=== PATIENT | male | born 1995 | race Caucasian/White ===

== ENCOUNTER 2017-05-10 02:18 | Emergency (ER) | payer OTHER ==
[~2017-05-10] VITALS: Ht 170.2 cm; Wt 70.3 kg
[2017-05-10] MEDS ORDERED: NALOXONE HCL 0.4 MG/ML AMPUL ONE (02:39)
[2017-05-10 02:43] LABS: BASOPHILS % (AUTO) 0.7 % (0.0-2.0); EOSINOPHILS # (AUTO) 0.2 K/uL (0.0-0.7); EOSINOPHILS % (AUTO) 2.6 % (0.0-7.0); HEMATOCRIT 42.3 % (36.7-47.1); HEMOGLOBIN 14.8 g/dL (12.5-16.3); LYMPHOCYTES # (AUTO) 2.7 K/uL (20.0-40.0); LYMPHOCYTES % (AUTO) 39.4 % (20.5-74.5); MEAN CORPUSCULAR HEMOGLOBIN 29.4 uug (23.8-33.4); MEAN CORPUSCULAR HGB CONC 35 g/dL (32.5-36.3); MEAN CORPUSCULAR VOLUME 84.2 fL (73.0-96.2); MONOCYTES # (AUTO) 0.7 K/uL (2.0-10.0); MONOCYTES % (AUTO) 10.2 % (0-11); NEUTROPHILS # (AUTO) 3.2 K/uL (1.8-8.9); NEUTROPHILS % (AUTO) 47.1 % (31.5-64.5); PLATELET COUNT (AUTO) 266 K/uL (152-348); RED BLOOD CELL COUNT(AUTO) 5.03 MIL/uL (4.06-5.63); WHITE BLOOD COUNT (AUTO) 6.8 K/uL (3.6-10.2)
[2017-05-10 02:56] LABS: ETHANOL < 3 MG/DL (0-0)
[2017-05-10 02:58] LABS: ALANINE AMINOTRANSFERASE 37 U/L (16-63); ALKALINE PHOSPHATASE 64 U/L (50-136); ASPARTATE AMINOTRANSFERASE 14 U/L (15-37); BILIRUBIN,DIRECT 0.1 mg/dL (0.0-0.2); BILIRUBIN,TOTAL 0.5 mg/dL (0.2-1.0); CARBON DIOXIDE 27 mmol/L (21-32); CHLORIDE 99 mmol/L (98-107); CREATININE 0.9 mg/dL (0.6-1.3); GLUCOSE 120 mg/dL (74-106); POTASSIUM 3.2 mmol/L (3.5-5.1); TOTAL PROTEIN, SERUM 7.6 g/dL (6.4-8.2); UREA NITROGEN, BLOOD 13 mg/dL (7-18)
--- NOTE | 2017-05-10 03:03 | NUR ---
Pt BIB staff from [facility] in , reports pt was attempting to check-in but than passed out, previously stated his drug of choice was heroin. Pt not responsive to pain. Pt placed on monitor, IV 18g left wrist was started, Blood drawn and given to clinical lab scientist. Pt SPO2 97-100% on RA. No distress noted.
[2017-05-10 03:49] LABS: ACETAMINOPHEN < 2.0 ug/mL (10-30)
[2017-05-10 03:51] LABS: THYROID STIMULATING HORMONE 6.475 mIU/mL (0.358-3.740)
--- NOTE | 2017-05-10 05:04 | NUR ---
Pt arose to speech briefly, did not answer questions.
--- NOTE | 2017-05-10 07:37 | NUR ---
0706- Patient ambulated to room 1A from bathroom with steady gait, NAD, respiration :easy, pending results and disposition.
--- NOTE | 2017-05-10 08:41 | NUR ---
IV removed. Catheter intact and site benign. Pressure and 4x4 gauze applied to site. No bleeding noted. Dr Patel paged for Dr Sexton regarding patient's TSH level today.
[2017-05-10] MEDS ORDERED: POTASSIUM CHLORIDE 20 MEQ TAB.PRT.SR PO ONE (08:46)
[2017-05-10 09:05] LABS: *AMPHETAMINE, URINE POSITIVE (NEGATIVE); *BARBITURATE, URINE NEGATIVE (NEGATIVE); *CANNABINOID, URINE NEGATIVE (NEGATIVE); *COCCAINE, URINE NEGATIVE (NEGATIVE); *OPIATE, URINE POSITIVE (NEGATIVE); *PHENCYCLIDINE SCREEN,URINE NEGATIVE (NEGATIVE)
[2017-05-10] MEDS ORDERED: POTASSIUM CHLORIDE 20 MEQ TAB.PRT.SR ONE (09:10)
--- NOTE | 2017-05-10 09:16 | NUR ---
Patient discharged to [facility] (with staff from [facility] at bedside) in stable conditon. Written and verbal after care instructions given to patient. Patient verbalizes understanding of instructions. Patient left ER with steady gait.
== END 2017-05-10 09:24 | disposition home or self-care (01) ==
LOC: ER 02:19
DX: R94.6 Abnormal results of thyroid function studies (principal); F11.10 Opioid abuse, uncomplicated; F13.10 Sedative, hypnotic or anxiolytic abuse, uncomplicated
CPT/HCPCS: 36415; 71010; 80048; 80076; 80307; 82962; 84443; 85025; 99285; A4663; G0480 ×2; G0481; J2310

== ENCOUNTER 2017-05-10 09:16 | Inpatient (IN) | payer OTHER ==
[~2017-05-10] VITALS: Ht 172.7 cm; Wt 62.6 kg
--- NOTE | 2017-05-10 09:40 | NUR ---
Pre-Admission Pre-admission assessment performed in the intake department of [facility]. Pt is A&O and ambulatory with a steady gait. He appears mildly intoxicated and answers questions appropriately. Pt arrived to [facility] intake from the emergency department where he was monitored over night for intoxication. He states "I'm tired and hungry". Vital signs are B/P 129/70, HR 75, RR 16, O2 sat 100%, T 98.0, pain 0/10. Pt reports that he is here to be treated for BZD and Heroin use. Pt is stable and [facility]
[2017-05-10 09:45] VITALS: BP 129/70
[2017-05-10] MEDS ORDERED: BUPRENORPHINE HCL 2 MG TAB.SUBL SL PRN (10:15)
[2017-05-10] MEDS ORDERED: LOPERAMIDE HCL 2 MG CAPSULE PO PRN ×2 (10:15)
[2017-05-10] MEDS ORDERED: METHOCARBAMOL 750 MG TABLET PO PRN (10:15)
[2017-05-10] MEDS ORDERED: MIRALAX 17 GM POWD.PACK PO PRN (10:15)
[2017-05-10] MEDS ORDERED: ONDANSETRON 4 MG/2 ML VIAL IM PRN (10:15)
[2017-05-10] MEDS ORDERED: CLONIDINE HCL 0.1 MG TABLET PO PRN (10:15)
[2017-05-10] MEDS ORDERED: DICYCLOMINE HCL 20 MG TABLET PO PRN (10:15)
[2017-05-10] MEDS ORDERED: ONDANSETRON ODT 4 MG TAB.RAPDIS SL PRN (10:15)
[2017-05-10] MEDS ORDERED: MAGNESIUM HYDROXIDE 30 ML LIQUID UDC PO PRN (10:15)
[2017-05-10] MEDS ORDERED: IBUPROFEN 600 MG TABLET PO PRN (10:15)
[2017-05-10] MEDS ORDERED: MAG HYDROX/AL HYDROX/SIMETH 30 ML LIQUID UDC PO PRN (10:15)
[2017-05-10] MEDS ORDERED: ACETAMINOPHEN 325 MG TABLET PO PRN (10:15)
[2017-05-10] MEDS ORDERED: diphenhydrAMINE 50 MG CAPSULE PO PRN (10:15)
[2017-05-10] MEDS ORDERED: HYDROXYZINE PAMOATE 25 MG CAPSULE PO PRN (10:15)
--- NOTE | 2017-05-10 11:00 | NUR ---
ADMISSION Pt is a 23 yo male who arrived on the [facility] at 1005 on 05/10/17 for medically supervised detox. He is A&O and ambulatory. He appears mildly intoxicated and answers questions appropriately. Body check performed by the DIAMOND POWDER MIXER and skin check performed by the nurse. Pt was oriented to the unit and shown to his room. Prior to being admitted to [facility] patient was monitored in the ED for acute intoxication. He reports NKA, wishes to be full code status, and is on a regular diet. Admitting vitals are: B/P 129/70, HR 75, RR 16, O2 sat 100%, T 98.0, pain 0/10. He is 5'8" and weighs 138lb. He denies any past medical or psychological history and has no seizure history. Lung sounds clear, PERRLA, brisk capillary refill, abdomen soft and non-distended, bowel sounds present, ac/dc rewinder strengths equal, skin is intact. Last BM was yesterday. History of Use 1. BZD/Xanax PO 4-6mg per day for the past 2 months. Last used 4mg 05/10/17 at 0130. Pt has used BZD's for the past 6 years. He intermittently uses Valium or Klonopin if he is unable to obtain Xanax. 2. Opiate/Heroin IV 1 gram per day for the past 2 months. Last used 0.5 grams 05/10/17 at 0130. He has used heroin for 5 years. 3. Methamphetamine IV 0.5 grams per day for the past 2 months. Last used 0.5 grams on 05/10/17 at 0130. He has used Meth for 1 year. Treatment History [facility] 05/02/17 for 6 months. Pt smokes 15 cigarettes per day. His longest period of sobriety was 2 months beginning 04/2016. He currently lives in an apartment with two roommates. He decided to come to treatment today because "It was too much". UDS provided on the [facility]. Minimal s/s of withdrawal on admission as pt last used early today. Pt has not slept much in the past 4 days r/t substance use. COWS 1 and CIWA 1 on admission. Pt does not have a primary care physician. Dr. Lara aware of pt's admission. Pt educated regarding unit rules and use of the call light. All questions answered. Bed is down with call light in reach. Addendum: 05/10/17 at 1829 by NEETA ALEXANDER RN Pt reports occasionally drinking ETOH, using cocaine, GHB, GBL, and BDO.
[2017-05-10] MEDS ORDERED: LORAZEPAM 2 MG/1 ML VIAL IM PRN (12:15)
[2017-05-10] MEDS ORDERED: LORAZEPAM 1 MG TABLET PO PRN ×2 (12:15)
[2017-05-10 12:30] VITALS: BP 120/71
[2017-05-10 13:05] LABS: *AMPHETAMINE, URINE POSITIVE (NEGATIVE); *BARBITURATE, URINE NEGATIVE (NEGATIVE); *CANNABINOID, URINE NEGATIVE (NEGATIVE); *COCCAINE, URINE NEGATIVE (NEGATIVE); *OPIATE, URINE POSITIVE (NEGATIVE); *PHENCYCLIDINE SCREEN,URINE NEGATIVE (NEGATIVE)
[2017-05-10 16:00] VITALS: BP 122/69
[2017-05-10 17:23] LABS: BASOPHILS % (AUTO) 0.7 % (0.0-2.0); EOSINOPHILS # (AUTO) 0.1 K/uL (0.0-0.7); EOSINOPHILS % (AUTO) 2.7 % (0.0-7.0); HEMATOCRIT 47.6 % (36.7-47.1); HEMOGLOBIN 16.1 g/dL (12.5-16.3); LYMPHOCYTES # (AUTO) 1.6 K/uL (20.0-40.0); MEAN CORPUSCULAR HEMOGLOBIN 28.8 uug (23.8-33.4); MEAN CORPUSCULAR HGB CONC 34 g/dL (32.5-36.3); MEAN CORPUSCULAR VOLUME 84.8 fL (73.0-96.2); MONOCYTES # (AUTO) 0.5 K/uL (2.0-10.0); MONOCYTES % (AUTO) 10.4 % (0-11); NEUTROPHILS # (AUTO) 2.4 K/uL (1.8-8.9); NEUTROPHILS % (AUTO) 51.2 % (31.5-64.5); PLATELET COUNT (AUTO) 276 K/uL (152-348); RED BLOOD CELL COUNT(AUTO) 5.61 MIL/uL (4.06-5.63); WHITE BLOOD COUNT (AUTO) 4.7 K/uL (3.6-10.2)
[2017-05-10 17:40] LABS: ETHANOL < 3 MG/DL (0-0)
[2017-05-10 17:41] LABS: ALANINE AMINOTRANSFERASE 36 U/L (16-63); ALKALINE PHOSPHATASE 65 U/L (50-136); ASPARTATE AMINOTRANSFERASE 16 U/L (15-37); BILIRUBIN,TOTAL 0.8 mg/dL (0.2-1.0); CARBON DIOXIDE 29 mmol/L (21-32); CHLORIDE 103 mmol/L (98-107); CREATININE 0.9 mg/dL (0.6-1.3); GLUCOSE 88 mg/dL (74-106); MAGNESIUM 2.1 mg/dL (1.8-2.4); POTASSIUM 4.4 mmol/L (3.5-5.1); TOTAL PROTEIN, SERUM 7.9 g/dL (6.4-8.2); UREA NITROGEN, BLOOD 10 mg/dL (7-18)
[2017-05-10 17:50] LABS: THYROID STIMULATING HORMONE 0.718 mIU/mL (0.358-3.740)
--- NOTE | 2017-05-10 19:15 | NUR ---
END OF SHIFT Report provided to warehouse worker 2nd shift nurse. Pt is lying in bed watching TV. He is a 21 yo male admitted to [facility] today for BZD and opiate dependence. He is A&O and ambulatory. NKA, full code status, and on a regular diet. Minimal s/s of withdrawal. Pt last used today at 0130. PRN's available for the management of withdrawal symptoms. No medications administered Ativan dose ordered for tonight. He slept throughout the day as he had not slept much in the days prior admission. Last COWS 2 and CIWA 2. He drank 1000mL. Fall and seizure precautions in place. Bed is down with call light in reach.
--- NOTE | 2017-05-10 19:25 | NUR ---
START OF SHIFT Patient is a 21-year-old patient admitted on 05/10/17 for Xanax, Heroin, and methamphetamine dependence. Patient has a past medical history of anxiety. Patient is FULL code, NKA to food or drugs, on a regular diet. Patient is scheduled to start a 5-day Ativan and 5-day Subutex taper tomorrow. Upon assessment, patient is awake, alert and oriented x4, complaining of mild chills and dizziness. SN instructed patient to rise from bed slowly and change positions slowly to minimize dizziness/lightheadedness. Patient verbalized understanding to instruction. Patient is on fall and seizure precautions with no history of seizure. Safety measures in place, bed locked in low position, side rails up x2, call light within reach. Will continue to monitor.
[2017-05-10 20:00] VITALS: BP 126/63
[2017-05-10] MEDS: GABAPENTIN 300 MG CAPSULE PO SCH (20:51)
--- NOTE | 2017-05-10 20:59 | NUR ---
PRN MOTRIN Patient complains of headache 5/10. PRN Motrin 600mg given PO. Safety measures in place, call light within reach. Will reassess in one hour.
[2017-05-10] MEDS ORDERED: LORAZEPAM 1 MG TABLET PO SCH (21:00)
--- NOTE | 2017-05-10 21:59 | NUR ---
PRN MOTRIN REASSESSMENT Patient reports headache pain 2/10 at this time. PRN Motrin effective. Patient's respirations are even and unlabored. Safety measures in place, bed locked in low position, side rails up x2, call light within reach. Will continue to monitor.
[2017-05-11] VITALS: BP 103/46
--- NOTE | 2017-05-11 | NUR ---
MIDNIGHT COWS & CIWA DEFERRED Midnight COWS & CIWA deferred due to patient asleep; to be assessed and scored while patient is awake, per protocol. Patient's respirations are even and unlabored, 14/min. Safety measures in place, bed locked in low position, side rails up x2, call light within reach. Will continue to monitor.
[2017-05-11 04:00] VITALS: BP 110/61
--- NOTE | 2017-05-11 04:00 | NUR ---
4AM COWS & CIWA DEFERRED 4AM COWS & CIWA deferred due to patient asleep; to be assessed and scored while patient is awake, per protocol. Patient's respirations are even and unlabored, 16/min. Safety measures in place, bed locked in low position, side rails up x2, call light within reach. Will continue to monitor.
--- NOTE | 2017-05-11 07:07 | NUR ---
END OF SHIFT Patient is a 21-year-old patient admitted on 05/10/17 for Xanax, Heroin, and methamphetamine dependence. Patient has a past medical history of anxiety. Patient is FULL code, NKA to food or drugs, on a regular diet. Patient is scheduled to start a 5-day Ativan and 5-day Subutex taper today. Patient slept for 7 hours, total intake of 796 mL, void x1, stool x0. PRN Motrin was given at 205 for headache of 5/10. PRN Motrin was effective in bringing down pain to 2/10 at time of reassessment. Last COWS was 6, last CIWA 8. Patient is on fall and seizure precautions with no history of seizure. Safety measures in place, bed locked in low position, side rails up x2, call light within reach. Will endorse to day shift.
--- NOTE | 2017-05-11 07:45 | NUR ---
START OF SHIFT RECEIVED PT RESTING IN BED A/O X4. RESPIRATIONS EVEN AND UNLABORED. PT REPORTS HAVING BODY ACHES, CHILLS, SWEATING, ANXIETY, STOMACH CRAMPING, NUMBNESS IN LEGS, DIZZINESS, AND CONGESTION. PUPILS ARE LARGER THAN NORMAL SIZE. PILOERECTION OF THE PT SKIN SEEN AND MILD TREMORS FELT AND SEEN. NO SOB OR NAUSEA NOTED. ENCOURAGED PT TO CONSUME MORE FLUIDS TO FACILITATE IN DETOX PROCESS. BED IN LOWEST POSITION. CALL LIGHT WITHIN REACH. SZ AND FALL PRECAUTIONS TAKEN. WILL CONTINUE TO MONITOR AND PROVIDE SUPPORT.
[2017-05-11 08:00] VITALS: BP 107/68
[2017-05-11] MEDS: BUPRENORPHINE HCL 2 MG TAB.SUBL SL SCH ×3 (08:42→20:23)
[2017-05-11] MEDS: GABAPENTIN 300 MG CAPSULE PO SCH ×2 (08:42→20:21)
[2017-05-11] MEDS: LORAZEPAM 1 MG TABLET PO SCH ×3 (08:42→20:23)
[2017-05-11] MEDS ORDERED: TUBERCULIN,PURIF.PROT.DERIV. 5 TU/0.1 ML TEST ID ONE (09:00)
[2017-05-11 12:00] VITALS: BP 114/60
[2017-05-11] MEDS: OSELTAMIVIR PHOSPHATE 75 MG CAPSULE PO SCH (14:03)
[2017-05-11 16:00] VITALS: BP 120/52
--- NOTE | 2017-05-11 19:30 | NUR ---
END OF SHIFT PT RESTING IS A/O X4. RESPIRATIONS EVEN AND UNLABORED. PT REPORTS HAVING BODY ACHES, CHILLS, SWEATING, ANXIETY, STOMACH CRAMPING, NUMBNESS IN LEGS, DIZZINESS, AND CONGESTION. PUPILS ARE LARGER THAN NORMAL SIZE. PILOERECTION OF THE PT SKIN SEEN AND MILD TREMORS FELT AND SEEN. NO SOB OR NAUSEA NOTED. LAST COWS 6 CIWA 5. DIET HAS BEEN CHANGED TO LACTOSE-FREE DIET. ENCOURAGED PT TO CONSUME MORE FLUIDS TO FACILITATE IN DETOX PROCESS. BED IN LOWEST POSITION. CALL LIGHT WITHIN REACH. SZ AND FALL PRECAUTIONS TAKEN. WILL GIVE ALL ENDORSEMENT AND PERTINENT DATA TO PATHOLOGY SUPERVISOR NURSE.
--- NOTE | 2017-05-11 19:40 | NUR ---
START OF SHIFT Patient is a 21-year-old patient admitted on 05/10/17 for Xanax, Heroin, and methamphetamine dependence. Patient has a past medical history of anxiety. Patient is FULL code, NKA to food or drugs, on a regular diet. Patient is currently on a 5-day Ativan and 5-day Subutex taper, tolerating well. Upon assessment, patient is awake, alert and oriented x4, skin intact. Patient reports he has been sleeping on and off during the day and has been eating his meals. Patient is on fall and seizure precautions with no history of seizure. Safety measures in place, bed locked in low position, side rails up x2, call light within reach. Will continue to monitor.
[2017-05-11 20:00] VITALS: BP_SYST 113; BP_SYST 97; BP_DIAS 54; BP_DIAS 65
--- NOTE | 2017-05-12 | NUR ---
MIDNIGHT VITALS REFUSED, COWS AND CIWA DEFERRED Patient refused midnight vital signs, COWS and CIWA deferred due to patient asleep; to be assessed and scored while patient is awake per protocol. Respirations 14/min, even and unlabored. Safety measures in place, call light within reach. Will continue to monitor.
[2017-05-12 04:00] VITALS: BP 114/54
--- NOTE | 2017-05-12 04:00 | NUR ---
4AM COWS AND CIWA DEFERRED COWS and CIWA deferred due to patient asleep; to be assessed and scored while patient is awake per protocol. Respirations 16/min, even and unlabored. Safety measures in place, call light within reach. Will continue to monitor.
--- NOTE | 2017-05-12 07:19 | NUR ---
END OF SHIFT Patient is a 21-year-old patient admitted on 05/10/17 for Xanax, Heroin, and methamphetamine dependence. Patient has a past medical history of anxiety. Patient is FULL code, NKA to food or drugs, on a regular diet. Patient is currently on a 5-day Ativan and 5-day Subutex taper, tolerating well. Patient slept for 10 hours, total intake of 547 mL, void x1, stool x0. Patient did not receive any PRN medications. Patients last COWS score was 5, last CIWA score was 5. Patient is on fall and seizure precautions with no history of seizure. Safety measures in place, bed locked in low position, side rails up x2, call light within reach. Will endorse to day shift.
[2017-05-12 08:00] VITALS: BP 114/60
--- NOTE | 2017-05-12 08:05 | NUR ---
START OF SHIFT: RECEIVED PT A/O X 4.HE PRESENTS WITH BLUNTED AFFECT AND DEPRESSED MOOD. HE DENIES S/I AND H/I. COWS 9 CIWA 5. HE CONTINUES ON ATIVAN/SUBUTEX TAPER TO MANAGE S/S OF W/D. HE REPORTS BODY ACHES,SWEATS,CHILLS,RESTLESSNESS AND IRRITABILITY. ENCOURAGED INCREASED FLUIDS TO ASSIST IN FACILITATING DETOX PROCESS. WILL CONTINUE TO MONITOR AND MANAGE S/S OF W/D.
[2017-05-12] MEDS: GABAPENTIN 300 MG CAPSULE PO SCH ×2 (08:28→20:34)
[2017-05-12] MEDS: LORAZEPAM 1 MG TABLET PO SCH ×4 (08:28→20:34)
[2017-05-12] MEDS: OSELTAMIVIR PHOSPHATE 75 MG CAPSULE PO SCH (09:00)
[2017-05-12] MEDS ORDERED: BUPRENORPHINE HCL 2 MG TAB.SUBL SL SCH (09:00)
[2017-05-12 12:00] VITALS: BP 129/60
[2017-05-12] MEDS ORDERED: OSELTAMIVIR PHOSPHATE 75 MG CAPSULE PO ONE (12:00)
[2017-05-12] MEDS: BUPRENORPHINE HCL 2 MG TAB.SUBL SL SCH ×2 (14:57→20:34)
[2017-05-12 16:00] VITALS: BP 112/67
--- NOTE | 2017-05-12 18:29 | NUR ---
END OF SHIFT: PT CONTINUES ON SUBUTEX/ATIVAN TAPER. LAST COWS 4 CIWA 4. HE HAS BEEN IN BED SLEEPING ON AND OFF ALL OF SHIFT. HE STATES HE WAS AWAKE FOR MANY DAYS IN A ROW BEFORE COMING INTO DETOX AND NEEDS REST. HE WAS COMPLIANT WITH INCREASED FLUIDS. HELD 1300 DOSE ATIVAN PT WAS SLEEPING. WILL PASS SHIFT REPORT TO ONCOMING NIGHT NURSE.
--- NOTE | 2017-05-12 19:15 | NUR ---
Start of Shift Note: Patient is a 21 y.o male admitted on 05/10/17 for Opiate and Benzo dependence. Patient denies any past medical history. No seizure history noted. Patient is on a regular diet with no known food and drug allergies. Full Code status. Patient is on a 5-day Subutex and 5-day Ativan taper and tolerating well. Last COWS 4 CIWA 4. No PRn medications given during day shift. Patient is alert & oriented x4. No shortness of breath noted. Respiration even & unlabored. Abdomen soft & non-distended. No nausea/vomiting noted. Patient presented with complains of stomach cramps, stuffy nose, mild headache and anxiety. Hand tremors felt but not seen. Patient denies hallucinations at this time. Safety precautions in place. Bed locked in lowest position. Both side rails up. Call light within pts reach. Will continue to monitor patient.
[2017-05-12 20:00] VITALS: BP 124/82
--- NOTE | 2017-05-12 20:34 | NUR ---
PRN Bentyl Patient complained of stomach cramping. PRN Bentyl administered as ordered. WIll continue to monitor patient.
--- NOTE | 2017-05-12 21:34 | NUR ---
PRN Reassessment PRN medication effective. Patient verbalized relief in stomach cramps after medication administration. Will continue to monitor patient.
[2017-05-13] VITALS: BP 119/58
--- NOTE | 2017-05-13 07:07 | NUR ---
End of Shift Note: Patient had an uneventful night. Patient is a 21 y.o male admitted for Opiate and Benzo dependence. Patient is on a 5-day Subutex and 5-day Ativan taper and tolerating well. Last COWS 5 CIWA 5 noted. Patient received PRN Bentyl during my shift and was effective. Closely monitor symptoms of withdrawal. Vitals monitored closely and noted within normal limits. Patient is compliant with medications and treatment plan. Patient remained stable throughout my shift. Patient shows no s/s of distress. Patient still asleep in bed. Patient slept for a total of 6 hour. Fluid intake 1553ml. Voided 1x with 1x bowel movement. All needs attended & met. Safety measures in place. Will continue to monitor patient.
--- NOTE | 2017-05-13 07:50 | NUR ---
START OF SHIFT NOTE Received report from night nurse, 21 year old male admitted for Opiate/Benzo dependence. Patient denies any PMH. Patient cont with 5 days Ativan/Subutex taper tolerating well. Per endorsement pt received PRN Bentyl effective per night nurse, last CIWA-5, COWS-5, slept for 6 hours. Patient received awake, alert and oriented x4. Patient was educated regarding plan of care for the day and medication regimen. Safety measures in place. Call light with in reach. Will continue to monitor.
[2017-05-13 08:00] VITALS: BP 124/66
[2017-05-13] MEDS: LORAZEPAM 1 MG TABLET PO SCH ×3 (08:25→20:32)
[2017-05-13] MEDS: GABAPENTIN 300 MG CAPSULE PO SCH ×3 (08:25→20:33)
[2017-05-13] MEDS: OSELTAMIVIR PHOSPHATE 75 MG CAPSULE PO SCH (08:25)
[2017-05-13] MEDS: BUPRENORPHINE HCL 2 MG TAB.SUBL SL SCH ×3 (08:26→20:33)
--- NOTE | 2017-05-13 10:01 | NUR ---
PRN ZOFRAN Patient reported nauseated and x1 emesis. PRN Zofran 4mg SL given as ordered. Will cont to monitor and reassess.
--- NOTE | 2017-05-13 10:10 | NUR ---
THerapist prompted client to come into group today and participate in his recovery.
--- NOTE | 2017-05-13 10:31 | NUR ---
ZOFRAN REASSESSMENT Per pt Zofran was effective nausea improved no emesis at this time.
[2017-05-13 12:00] VITALS: BP 114/62
[2017-05-13] MEDS ORDERED: BISACODYL 5 MG TABLET.DR PO PRN (12:30)
[2017-05-13] MEDS ORDERED: FLEET ENEMA 133 ML BOTTLE RC PRN (12:30)
[2017-05-13] MEDS ORDERED: BISACODYL 10 MG SUPP.RECT RC PRN (12:30)
[2017-05-13] MEDS: DICYCLOMINE HCL 20 MG TABLET PO SCH ×2 (14:12→20:32)
[2017-05-13] MEDS: DOCUSATE SODIUM 250 MG CAPSULE PO SCH (14:17)
--- NOTE | 2017-05-13 14:26 | NUR ---
Therapist prompted client about group times. Client stated he will attend group this afternoon.
[2017-05-13 16:00] VITALS: BP 139/68
--- NOTE | 2017-05-13 19:10 | NUR ---
END OF SHIFT NOTE Gave report to night nurse, 21 year old male who continues on taper medications. Pt tolerates ordered Meds well. Pt has one episode of emesis while on the patio, PRN Zofran 4mg SL administered and effective. Pt reports constipation and says nausea was related to that. New order for scheduled Colace 250mg started by Dr. Lara. Pt encouraged to attend groups and activities. All needs met, pt remains compliant with treatment plan. Most recent COWS 4 and CIWA 3. All needs are attended. Pt endorsed to night nurse in stable condition.
--- NOTE | 2017-05-13 19:55 | NUR ---
START OF SHIFT Received report from day shift nurse. Pt attended a group meeting and returned to his room after. He is a 21 yo male admitted to [facility] on 05/10 for BZD and Opiate dependence. He is A&O and ambulatory. NKA, full code status, and on a regular diet. He denies any PMH. On admission he reported using Xanax 4-6mg per day, heroin 1 gram per day, and methamphetamine 0.5 grams per day. 5 day Ativan and 5 day Subutex tapers started 05/11. He reports chills, restlessness, stomach cramps, and nasal stuffiness. Tapers due tonight. Fall and seizure precautions in place. Bed is down with call light in reach.
[2017-05-13 20:00] VITALS: BP 123/68
--- NOTE | 2017-05-13 20:38 | NUR ---
PRN Milk of Magnesia Pt reports no BM since prior to admission. Encouraged fluids. PRN Milk of Magnesia administered.
[2017-05-13 22:19] LABS: HEPATITIS B SURFACE AG Negative (Negative)
[2017-05-14] VITALS: BP 105/58
--- NOTE | 2017-05-14 04:00 | NUR ---
0400 Vitals refused/COWS and CIWA deferred Pt refused to be woken for 0400 vitals. He is lying in bed resting with eyes closed. Respirations even and unlabored. COWS and CIWA ordered Q4HWA. Safety measures in place.
--- NOTE | 2017-05-14 07:27 | NUR ---
END OF SHIFT Report provided to day shift nurse. Pt is lying in bed resting. He is a 21 yo male admitted to [facility] on 05/10 for BZD and Opiate dependence. He is A&O and ambulatory. NKA, full code status, and on a regular diet. He denies any PMH. On admission he reported using Xanax 4-6mg per day, heroin 1 gram per day, and methamphetamine 0.5 grams per day. 5 day Ativan and 5 day Subutex tapers started 05/11. PRN Milk of Magnesia administered. No BM reported by pt yet. Last COWS 5 and CIWA 5. He drank 1000mL and slept for 9 hours. Fall and seizure precautions in place. Bed is down with call light in reach.
[2017-05-14 08:00] VITALS: BP 109/61
--- NOTE | 2017-05-14 08:15 | NUR ---
START OF SHIFT: RECEIVED PT A/O X 4.HE C/O STOMACH CRAMPS,ANXIETY AND RESTLESSNESS. COWS 3 CIWA 1. SUBUTEX/ATIVAN TAPER IN PROGRESS TO MANAGE S/S OF W/D. ENCOURAGED GROUP ATTENDANCE TO IMPROVE COPING SKILLS AND PREVENT RELAPSE. WILL CONTINUE TO MONITOR AND OFFER SUPPORT.
[2017-05-14] MEDS: OSELTAMIVIR PHOSPHATE 75 MG CAPSULE PO SCH (09:00)
[2017-05-14] MEDS ORDERED: LORAZEPAM 1 MG TABLET PO SCH ×2 (09:00)
[2017-05-14] MEDS ORDERED: BUPRENORPHINE HCL 2 MG TAB.SUBL SL SCH ×2 (09:00)
[2017-05-14] MEDS: DICYCLOMINE HCL 20 MG TABLET PO SCH (09:28)
[2017-05-14] MEDS: GABAPENTIN 300 MG CAPSULE PO SCH (09:28)
[2017-05-14] MEDS: DOCUSATE SODIUM 250 MG CAPSULE PO SCH (09:28)
[2017-05-14 12:00] VITALS: BP 137/69
--- NOTE | 2017-05-14 13:04 | NUR ---
Therapist prompted client to come into group. Client agreed.
--- NOTE | 2017-05-14 15:40 | NUR ---
DISCHARGE AMA: PT IS A/O X4. HE DENIES S/I AND H/I. HE STATES HE IS MOTIVATED TO LEAVE AND WILL GO TO TREATMENT TOMORROW. MULTIDISCIPLINARY TEAM INTERVENED AND ENCOURAGED HIM TO STAY AND COMPLY WITH TREATMENT PLAN WITH NO SUCCESS. BELONGINGS RETURNED. EDUCATED PT ON RESOURCES AND A LIST PROVIDED.CUSTOMER FIELD REPRESENTATIVE ESCORTED PT TO LOBBY. HE LEFT FACILITY AT 1523.
[2017-05-15] MEDS ORDERED: LORAZEPAM 1 MG TABLET PO SCH (09:00)
[2017-05-15] MEDS ORDERED: BUPRENORPHINE HCL 2 MG TAB.SUBL SL SCH (09:00)
== END 2017-05-14 15:23 | disposition left against medical advice (07) | DRG 894 ==
LOC: SRC 09:16
PROVIDERS: ADMIT Internal Medicine; ATTEND Internal Medicine
PROC: HZ2ZZZZ Detoxification Services for Substance Abuse Treatment (ICD-10-PCS; principal; 2017-05-10)
PROC: HZ31ZZZ Individual Counseling for Substance Abuse Treatment, Behavioral (ICD-10-PCS; 2017-05-13)
PROC: HZ41ZZZ Group Counseling for Substance Abuse Treatment, Behavioral (ICD-10-PCS; 2017-05-14)
DX: F11.23 Opioid dependence with withdrawal (principal); E07.81 Sick-euthyroid syndrome; F13.230 Sedative, hypnotic or anxiolytic dependence with withdrawal, uncomplicated; F15.23 Other stimulant dependence with withdrawal; F17.210 Nicotine dependence, cigarettes, uncomplicated; Z91.89 Other specified personal risk factors, not elsewhere classified; F41.9 Anxiety disorder, unspecified; Z82.49 Family history of ischemic heart disease and other diseases of the circulatory system; Z82.0 Family history of epilepsy and other diseases of the nervous system; Z59.0 Homelessness; Z59.1 Inadequate housing; Z20.828 Contact with and (suspected) exposure to other viral communicable diseases; K59.03 Drug induced constipation
CPT/HCPCS: 36415; 70030-TC; 80307; 80324; 80346; 80361; 83735; 84443; 85025; 86580; 86592; 86705; 86803; 87340; 87806; G0480; Q0162